=== PATIENT | female | born 1995 | race American Indian/Alaskan Native ===

== ENCOUNTER 2016-11-28 01:09 | Emergency (ER) | payer MEDICAID ==
[2016-11-28 03:10] VITALS: BP 129/99
[2016-11-28 03:41] LABS: Basophils % (Auto) 0.9 % (0.0-1.8); Hematocrit 41.2 % (30.3-42.9); Hemoglobin 13.5 gm/dl (10.1-14.3); Mean Corpuscular HGB Conc 33 % (30-34); Mean Corpuscular Hemoglobin 28 pg (28-32); Mean Corpuscular Volume 85 fl (79-97); Platelet Count 324 K/mm3 (140-440); Red Blood Count 4.86 M/mm3 (3.65-5.03); Red Cell Distribution Width 14.9 % (13.2-15.2); White Blood Count 8.4 K/mm3 (4.5-11.0)
[2016-11-28 03:59] LABS: Anion Gap 19 mmol/L; Blood Urea Nitrogen 8 mg/dL (7-17); Calcium 8.9 mg/dL (8.4-10.2); Carbon Dioxide 21 mmol/L (22-30); Chloride 105.8 mmol/L (98-107); Glucose 94 mg/dL (65-100); Potassium 3.5 mmol/L (3.6-5.0); Sodium 142 mmol/L (137-145)
== END 2016-11-28 06:27 | disposition left against medical advice (07) ==
LOC: ED 01:09
DX: F41.9 Anxiety disorder, unspecified (principal); Z53.21 Procedure and treatment not carried out due to patient leaving prior to being seen by health care provider
CPT/HCPCS: 36415; 80048; 84703; 85025; G0480; 80320

== ENCOUNTER 2018-09-26 18:29 | Emergency (ER) | payer MEDICAID ==
[2018-09-26 18:38] VITALS: BP 139/77
--- NOTE | 2018-09-26 18:42 | Emergency Department Report ---
Chief Complaint: Urogenital-Female Stated Complaint: STD CHECK Time Seen by Provider: 09/26/18 18:34 - Exam Vital Signs: Vital Signs 09/26/18 18:33 Temperature 98.5 F Pulse Rate 115 H Respiratory 18 Rate Blood Pressure 139/77 O2 Sat by Pulse 98 Oximetry MSE screening note: Focused history and physical exam performed. Due to findings the following was ordered: ED Disposition for MSE
--- NOTE | 2018-09-26 18:49 | Emergency Department Report ---
Blank Doc - Documentation Documentation: This is a 23-year-old female that presents with possible STD check. Stated stephen malena was here and treated for STD. Denies any symptoms. This initial assessment/diagnostic orders/clinical plan/treatment(s) is/are subject to change based on patient's health status, clinical progression and re- assessment by fellow clinical providers in the ED. Further treatment and workup at subsequent clinical providers discretion. Patient/guardians urged not to elope from the ED as their condition may be serious if not clinically assessed and managed. Initial orders include: 1- Patient sent to [facility] for further evaluation and treatment 2- UA/GC
== END 2018-09-26 21:00 | disposition left against medical advice (07) ==
LOC: ED 18:29
DX: Z11.3 Encounter for screening for infections with a predominantly sexual mode of transmission (principal); Z53.21 Procedure and treatment not carried out due to patient leaving prior to being seen by health care provider

== ENCOUNTER 2020-04-24 15:49 | Emergency (ER) | payer MEDICAID ==
[2020-04-24 16:01] VITALS: BP 135/84
--- NOTE | 2020-04-24 16:05 | Event Note ---
ED Screening Note Date of service: 04/24/20 Time: 16:04 ED Screening Note: 25-year-old -[place] female who reports she is 16 weeks presents to the emergency room for nausea and vomiting. This initial assessment/diagnostic orders/clinical plan/treatment(s) is/are subject to change based on patients health status, clinical progression and re- assessment by fellow clinical providers in the ED. Further treatment and workup at subsequent clinical providers discretion. Patient/guardian urged not to elope from the ED as their condition may be serious if not clinically assessed and managed. Initial orders include:
== END 2020-04-24 21:33 | disposition left against medical advice (07) ==
LOC: ED 15:49
DX: R51.9 Headache, unspecified (principal); Z53.21 Procedure and treatment not carried out due to patient leaving prior to being seen by health care provider

== ENCOUNTER 2020-09-22 19:41 | Outpatient (CLI) | payer MEDICAID ==
[2020-09-22 20:00] VITALS: BP 127/77
== END 2020-09-22 20:50 | disposition home or self-care (01) ==
LOC: TRG 19:41 → APU 19:49 → TRG 20:50
DX: Z34.93 Encounter for supervision of normal pregnancy, unspecified, third trimester (principal); Z3A.37 37 weeks gestation of pregnancy
CPT/HCPCS: 59020